=== PATIENT | male | born 1950 | race Caucasian/White ===

== ENCOUNTER 2016-10-05 19:16 | Emergency (ER) | payer MEDICARE, BC ==
--- NOTE | ~2016-10-05 | CT4 ---
[facility] A Service of [facility] & [facility] RADIOLOGY TEXT RESULTS PATIENT: JILLIAN OJEDA LOCATION: [facility] : 52 UNIT #: [id number] AGE: [address]: John Davila MD SEX: M ORDER DR: [id number] [facility] [address] [place], [place] [address] [id number] MR#: [id number] Acc #: [id number] NAME: JILLIAN OJEDA : 1950 SEX: M STUDY DATE/TIME: 10/05/2016 21:57 UNIT: [facility] ROOM: STUDY DESCRIPTION: CT Abd and Pelv Wo Cont Attending Physician: John Davila M.D. Ordering Physician: John Davila M.D. Primary Care Physician: Madina Ortega A.P.R.N. MEDICAL IMAGING REPORT This report is preliminary unless electronic signature is present EXAM CT scan of the abdomen and pelvis without contrast. INDICATION Unable to urinate since this morning with chronic back pain. There is no comparison. TECHNIQUE Axial 3 mm images were obtained through the abdomen and pelvis without IV or oral contrast. This CT exam was performed with one or more of the following radiation dose reduction techniques: automatic exposure control, adjustment of mA and/or kV according to patient size, and iterative reconstruction. FINDINGS The lung bases are clear. There are small calcified granulomas in the liver and spleen and those organs are otherwise normal. The gallbladder, pancreas, adrenal glands and kidneys are normal except for a simple cyst in the right kidney measuring 3.1 cm in diameter. This is a well circumscribed water density lesion. There are no renal stones identified. There is actually another cyst projecting from the left kidney that is 1.2 cm in diameter and it is also water density. The aorta is normal in size. There is no adenopathy. The appendix is normal. There is a lipoma visible in the lower sigmoid colon. It measures about 3 cm in diameter. The bowel is otherwise normal. The bladder may have mild wall thickening and there is some hazy density in the fat around the bladder suggesting cystitis. The prostate gland is normal. The bones show mild degenerative changes. IMPRESSION 1. I suspect the patient has cystitis. The bladder is not significantly STS. [facility] A Service of [facility] RADIOLOGY TEXT RESULTS PATIENT: JILLIAN OJEDA LOCATION: [facility] : 52 UNIT #: [id number] AGE: [address]: John Davila MD SEX: M ORDER DR: distended but there does seem to be diffuse wall thickening and there is mild hazy inflammatory change in the fat surrounding the blader wall. 2. There is an incidental 3 cm lipoma visible in the lower sigmoid colon either in the wall or in the lumen. 3. Bilateral renal cysts. Dictated by... Shawn Leahy M.D. THIS IS AN ELECTRONICALLY VERIFIED REPORT Shawn Leahy M.D. at 10/06/2016 5:30 AM NATASHA/margaret TD: 10/06/2016 01:38 JOB #: [id number] MEDICAL IMAGING REPORT Page 1 of 1 COPY
[~2016-10-05 19:16] MED LIST: ASPIRIN325 M1 PO; CLARITIN10 MG PO; COUMADIN5 MG PO; COUMADIN7.5 MG PO; HYDROCODON-ACE1 EACH PO; LISINOPRIL-HCTZ1 T14 PO; LORAZEPAM0.5 MG PO; LORTAB 7.5-5001 TAB PO; METFORMIN PO; MEVACOR40 MG PO; NIACIN500 M1 PO; NORVASC10 MG PO; SKELAXIN PO; TOPROL XL PO; TRICOR145 MG PO; VITAMIN C WITH500 M1 PO; VITAMIN C500 M1 PO; WELLBUTRIN75 M1 PO
[2016-10-05 19:41] LABS: BASOPHIL# 0.1 X10e3 (0-0.3); BASOPHIL% 0.8 % (0-2.5); EOSINOPHIL# 0.2 X10e3 (0-0.7); EOSINOPHIL% 1.9 % (0.0-7.0); HEMATOCRIT 41.2 % (38.0-50.0); LYMPHOCYTE# 1.3 X10e3 (1.0-3.5); LYMPHOCYTE% 13.4 % (17.0-45.0); MEAN CELL VOLUME 86.7 FL (83-96); MEAN CORPUSCULAR HEMOGLOBIN 29.5 PG (28-34); MEAN PLATELET VOLUME 7.8 FL (6.5-11.5); MONOCYTE# 1.2 X10e3 (0-1.0); MONOCYTE% 13.1 % (3.0-12.0); NEUTROPHIL# 6.6 X10e3 (1.5-7.1); NEUTROPHIL% 70.8 % (40-75); PLATELET COUNT 226 X10e3 (140-420); RED BLOOD COUNT 4.76 X10e (3.90-5.60); RED CELL DISTRIBUTION WIDTH 13.9 % (11.0-15.5); WHITE BLOOD COUNT 9.3 X10e3 (4.0-10.5)
[2016-10-05 19:44] LABS: DIFF IND NO
[2016-10-05 19:52] LABS: INR 4.3; PARTIAL THROMBOPLASTIN TIME 52.8 SECONDS (23.5-31.3)
[2016-10-05 20:01] LABS: ALBUMIN SERUM 3.6 g/dL (3.5-5.0); BILIRUBIN, DIRECT 0.1 mg/dL (0.0-0.2); BILIRUBIN,INDIRECT 0.7 mg/dL (0.0-0.9); BILIRUBIN,TOTAL 0.8 mg/dL (0.2-2.0); BUN/CREATININE RATIO 29.33; CREATININE SERUM 1.5 mg/dL (0.6-1.4); GLOM FILT RATE Estimated 48.2 mL/min (>60); POTASSIUM 3.5 mmol/L (3.5-5.1); PROTEIN TOTAL SERUM 8.1 g/dL (6.0-8.3)
[2016-10-05 21:29] LABS: URINE SOURCE CLEAN CATCH
[2016-10-05 21:38] LABS: URINE APPEARANCE TURBID; URINE BILIRUBIN NEG (NEG); URINE BLOOD 3+ (NEG); URINE COLOR YELLOW; URINE GLUCOSE NEG (NEG); URINE KETONE TRACE (NEG); URINE LEUKOCYTE ESTERASE 3+ (NEG); URINE NITRATE NEG (NEG); URINE PROTEIN 2+ (NEG); URINE SPECIFIC GRAVITY 1.023 (1.003-1.035)
[2016-10-05 21:44] LABS: CULTURE INDICATED? YES; URBCS1 AUWI 50-100 /[HPF] (0-2); URINE BACTERIA AUWI NEG (NEGATIVE); URINE SQUAMOUS EPITHELIAL CELL OCC /[HPF]; UWBCS1 AUWI 200-300 (0-5)
== END 2016-10-05 23:10 | disposition home or self-care (01) ==
LOC: CED 19:16
PROVIDERS: Emergency Medicine
DX: N39.0 Urinary tract infection, site not specified (principal); I10 Essential (primary) hypertension; E11.9 Type 2 diabetes mellitus without complications; Z88.8 Allergy status to other drugs, medicaments and biological substances; Z87.891 Personal history of nicotine dependence
CPT/HCPCS: 51702; 74176; 80048; 80076; 81003; 85025; 85610; 85730; 87086; 87088; 87186; 96361; 96374; 99284; J0696